=== PATIENT | female | born 1930 | race Caucasian/White ===

== ENCOUNTER 2017-12-31 18:13 | Emergency (ER) | payer MEDICARE, BC ==
[2017-12-31 18:31] VITALS: RESP 18; TEMP 96.8
[2017-12-31 19:19] VITALS: BP 166/112; PULSE 115; O2SAT 99
== END 2017-12-31 19:17 | disposition home or self-care (01) | DRG 151 ==
LOC: ED 18:13
DX: R04.0 Epistaxis (principal)
CPT/HCPCS: 99282